=== PATIENT | male | born 1985 | race Caucasian/White ===

== ENCOUNTER 2019-02-09 12:10 | Emergency (ER) | payer OTHER ==
--- NOTE | 2019-02-09 12:36 | EDM.PDOC ---
ED HPI GENERAL MEDICAL PROBLEM - General Chief Complaint: Trauma Stated Complaint: RIB PAIN Time Seen by Provider: 02/09/19 12:10 Source of Information: Reports: Patient History Limitations: Reports: No Limitations - History of Present Illness INITIAL COMMENTS - FREE TEXT/NARRATIVE: Patient comes into the emergency department with complaint of left rib pain. Patient was at work yesterday and was working between 2 pieces of equipment and he states they were removing the piece of equipment he went to move his leg and ended up having the piece of equipment hit his left rib cage causing a popping sensation. Patient states that he noted discomfort right away. She describes the pain as sharp and shooting hurts more when he takes a deep breath or touches over the area. The pain has continued over the past 24 hours. He does not believe it has gotten any worse but it has also not gotten any better. Denies any shortness of breath, chest pain, blurred vision, nausea, vomiting, urinary concerns, or lower extremity edema. Patient denies any other concerns or complaints Onset: Sudden Location: Reports: Chest Quality: Reports: Sharp, Throbbing Severity: Moderate Improves with: Reports: Immobilization Worsens with: Reports: Movement Associated Symptoms: Reports: No Other Symptoms ED ROS GENERAL - Review of Systems Review Of Systems: See Below Constitutional: Reports: No Symptoms HEENT: Reports: No Symptoms Respiratory: Reports: No Symptoms Cardiovascular: Reports: No Symptoms Endocrine: Reports: No Symptoms GI/Abdominal: Reports: No Symptoms : Reports: No Symptoms Musculoskeletal: Reports: No Symptoms Skin: Reports: No Symptoms ED EXAM, GENERAL - Physical Exam Exam: See Below Exam Limited By: No Limitations General Appearance: Alert, WD/WN, No Apparent Distress Head: Atraumatic, Normocephalic Neck: Normal Inspection, Supple, Non-Tender, Full Range of Motion Respiratory/Chest: No Respiratory Distress, Lungs Clear, No Accessory Muscle Use , Other (tenderness upon palpation. no bruising noted) Cardiovascular: Normal Peripheral Pulses, Regular Rate, Rhythm GI/Abdominal: Normal Bowel Sounds, Soft, Non-Tender, No Distention Back Exam: Normal Inspection, Full Range of Motion Extremities: Normal Inspection, Normal Range of Motion, No Pedal Edema, Normal Capillary Refill Course - Orders/Labs/Meds Orders: Active Orders 24 hr Category Date Time Status Chest 1V Frontal [CR] Stat Exams 02/09/19 12:20 Ordered Ribs 2V w Chest Lt [CR] Stat Exams 02/09/19 12:20 Ordered Departure - Departure Time of Disposition: 13:20 Disposition: Home, Self-Care 01 Condition: Good Clinical Impression: Rib contusion Qualifiers: Encounter type: initial encounter Laterality: left Qualified Code(s): S20.212A - Contusion of left front wall of thorax, initial encounter - Discharge Information *PRESCRIPTION DRUG MONITORING PROGRAM REVIEWED*: Not Applicable *COPY OF PRESCRIPTION DRUG MONITORING REPORT IN PATIENT THANH: Not Applicable Instructions: Rib Contusion Referrals: PCP,None [Primary Care Provider] - Forms: ED Department Discharge Additional Instructions: 1. rest 2. apply ice to the area 3-4 times a day for 20 minutes 3. Can take Tylenol or ibuprofen as needed for pain 4. Activity and diet as tolerated 5. Follow up in the clinic as needed 6. Call with any questions or concerns - My Orders Last 24 Hours: My Active Orders 02/09/19 12:20 Chest 1V Frontal [CR] Stat Ribs 2V w Chest Lt [CR] Stat - Assessment/Plan Last 24 Hours: My Active Orders 02/09/19 12:20 Chest 1V Frontal [CR] Stat Ribs 2V w Chest Lt [CR] Stat Assessment:: 1. rib pain Plan: 1. X-ray of chest. results reviewed with the patient 2. Education regarding activity, diet, ice, OTC medication, and follow up provided 3. All questions and concerns addressed prior to patient discharge
--- NOTE | 2019-02-09 13:07 | CR ---
[id number] RAD/RAD Ribs Left W PA Chest Exam: RAD Ribs Left W PA Chest Indication:RIB PAIN, BLUNT FORCE TRAUMA. Comparison: No prior imaging for comparison. Discussion: No radiographically evident fracture. No joint effusion pneumothorax. No acute findings in the chest. Impression: Negative examination of the chest. Colt Osei MD 02/09/19 1107 Thank you for allowing us to participate in the care of your patient.
== END 2019-02-09 13:27 | disposition home or self-care (01) ==
LOC: VM.ED 12:10
DX: S20.212A Contusion of left front wall of thorax, initial encounter (principal); W22.8XXA Striking against or struck by other objects, initial encounter; Y99.0 Civilian activity done for income or pay
CPT/HCPCS: 71101-LT; 99283-25; 99283-GF